=== PATIENT | female | born 1975 | race Caucasian/White ===

== ENCOUNTER 2018-04-20 15:33 | Emergency (ER) | payer OTHER ==
[~2018-04-20] VITALS: Ht 162.6 cm; Wt 56.7 kg
[~2018-04-20 15:33] MED LIST: CLONAZEPAM 0.50.5 M1 PO
[2018-04-20] MEDS ORDERED: PROZAC10 MG PO (15:34)
[2018-04-20] MEDS ORDERED: WELLBUTRIN SR150 MG PO (15:34)
[2018-04-20 16:46] LABS: ABSOLUTE NEUTROPHILS 11.2 thou/uL (1.4-8.2); BASOPHILS 0.5 % (0.0-2.0); EOSINOPHILS 1.2 % (0.0-3.0); HEMATOCRIT 33.3 % (37.0-47.0); LYMPHOCYTES 21.6 % (24.0-44.0); MCH 25.3 pg (26.0-34.0); MCHC 33.1 g/dL (28.0-37.0); MCV 76.6 fL (80.0-100.0); MONOCYTES 4.7 % (1.0-8.0); PLATELET COUNT 308 thou/uL (150-400); RBC 4.34 mil/uL (4.20-5.00); RDW 18.4 % (10.5-14.5); WBC 15.6 thou/uL (4.0-11.0)
[2018-04-20 16:54] LABS: CREATININE 0.9 mg/dL (0.6-1.0)
[2018-04-20] MEDS ORDERED: BACTRIM DS TAB1 EACH PO (17:16)
[2018-04-20] MEDS ORDERED: NORCO 5-325 TA1 EACH PO (17:16)
[2018-04-20] MEDS ORDERED: KEFLEX500 M1 PO (17:16)
[2018-04-20 17:22] LABS: ANISOCYTOSIS 1+
[2018-04-20 17:23] LABS: POLYCHROMASIA OCCASIONAL
[2018-04-20 18:05] VITALS: BP 140/96
== END 2018-04-20 18:05 | disposition home or self-care (01) ==
LOC: ER 15:33
PROVIDERS: Nurse Practitioner Family
DX: L03.116 Cellulitis of left lower limb (principal); F17.210 Nicotine dependence, cigarettes, uncomplicated